=== PATIENT | female | born 1990 | race Caucasian/White ===

== ENCOUNTER 2021-03-13 09:50 | Emergency (ER) | payer OTHER ==
[2021-03-13 10:30] LABS: Absolute Neutrophil Ct (ANC) 4.81 (1.4-6.9); BASOPHIL % 0.3 % (0.0-0.4); Basophil (Absolute #) 0.02 (0-0.4); Eosinophil % 0.9 % (0.00-5.0); Eosinophil (Absolute #) 0.07 (0-0.5); Hematocrit 37.1 % (35-47); Hemoglobin 12.6 gm/dl (12.0-16.0); Lymphocyte (Absolute #) 1.88 (1.0-4.6); Mean Cell Volume 87.5 fl (78-100); Mean Corpuscular Hemoglobin 29.7 pg (26-32); Mean Platelet Volume 9.9 fl (7.5-11.0); Monocyte (Absolute #) 0.75 (0.0-1.3); Neutrophil % 63.8 % (36.0-66.0); Platelet Count 237 K/mm3 (150-450); Red Blood Count 4.24 M/mm3 (4.1-5.4); Red Cell Distribution Width 12.3 % (11.5-14.0); White Blood Count 7.5 K/mm3 (4.0-10.5)
[2021-03-13 10:38] LABS: Appearance SLIGHTLY CLOUDY (CLEAR); Bacteria RARE /HPF (NEGATIVE); Bilirubin NEGATIVE (NEGATIVE); Blood LARGE Ery/ul (0-5); Glucose NEGATIVE (NEGATIVE); Ketones TRACE (NEGATIVE); Leukocyte Esterase NEGATIVE (NEGATIVE); Nitrite NEGATIVE (NEGATIVE); Protein,Urine Dip 100 (Negative); Urobilinogen NEGATIVE mg/dL (0-1)
[2021-03-13 10:39] LABS: RBC >101 /HPF (0-2)
[2021-03-13 10:40] LABS: Epithelial Cells FEW /HPF (FEW)
[2021-03-13 11:00] LABS: ALBUMIN 4.7 g/dL (3.5-5.0); ALKALINE PHOSPHATASE 48 U/L (38-126); ANION GAP 13.3 MEQ/L (5-15); BLOOD UREA NITROGEN 9 mg/dL (7-17); CHLORIDE 101 mmol/L (98-107); Calcium 9.1 mg/dL (8.4-10.2); Carbon Dioxide 26 mmol/L (22-30); Creatinine 1 0.72 mg/dL (0.52-1.04); EST GLOMERULAR FILTRATION RATE > 60.0 ML/MIN; Glucose 88 mg/dL (74-106); Potassium 3.4 mmol/L (3.5-5.1); SGOT/AST 32 U/L (14-36); SGPT/ALT 16 U/L (0-35); SODIUM 137 mmol/L (137-145)
[2021-03-13 11:08] VITALS: BP 109/57
--- NOTE | 2021-03-13 11:10 | ERPHSYRPT ---
- History of Present Illness Source: patient Patient Subjective Stated Complaint: Pt states "I had a period, or what I thou ght was a period in mid january, On the 09 of march, I had a positive urine test and for the past couple of days I have had vaginal bleeding and it is spotting and heavy when I pee or wipe." Triage Nursing Assessment: Pt presented alert and oriented X 3, skin pwd Pt ambulates with an upright steady gait, able to speak in clear full sentences pt in no apaprent respiratory distress. Physician History: 30 yo wf w +preg test last week w vag spotting x1wk. Pt has diffuse abdominal pain described as cramping and rated 3/10 w max 7/10. Nothing makes the pain better or worse. She denies N/V/fever/dysuria/hematuria but has had some loose stool. Pt [id number] w 11month old child who is breast feeding. Timing/Duration: other (1wk) Activites at Onset: none Quality: cramping Onset Location: other (FGeneralized) Severity of Pain-Max: moderate Severity of Pain-Current: mild Prior abdominal problems: none Sexual intercourse history: non-contributory ( ) Modifying Factors: Improves With: nothing Associated Symptoms: abdominal pain, , other (vag bleeding) Allergies/Adverse Reactions: No Known Drug Allergies Allergy (Verified 03/13/21 10:11) Home Medications: Multivitamin with Folic Acid [[facility] One Daily Essential Tablet] 400 mcg PO DAILY 03/13/21 [History] Hx Tetanus, Diphtheria Vaccination/Date Given: No Hx Influenza Vaccination/Date Given: No Hx Pneumococcal Vaccination/Date Given: No Travel Risk - International Travel Have you traveled outside of the country in past 3 weeks: No - Coronavirus Screening Are you exhibiting any of the following symptoms?: No Close contact with a COVID-19 positive Pt in past 14-21 Days: No - Vaccine Status Have you recieved a Covid-19 vaccination: No - Review of Systems Constitutional: No Symptoms Eyes: No Symptoms Ears, Nose, & Throat: No Symptoms Respiratory: No Symptoms Cardiac: No Symptoms Abdominal/Gastrointestinal: No Symptoms, Diarrhea Genitourinary Symptoms: No Symptoms, , Vaginal Bleeding Musculoskeletal: No Symptoms Skin: No Symptoms Neurological: No Symptoms Psychological: No Symptoms Endocrine: No Symptoms Hematologic/Lymphatic: No Symptoms Immunological/Allergic: No Symptoms - Past Medical History Pertinent Past Medical History: Yes Neurological History: Migraines ENT History: No Pertinent History Cardiac History: No Pertinent History Respiratory History: Asthma Endocrine Medical History: No Pertinent History Musculoskeletal History: No Pertinent History GI Medical History: Gallbladder Disease History: No Pertinent History Psycho-Social History: No Pertinent History Female Reproductive Disorders: Other Other Medical History: ovarian cysts - Past Surgical History Past Surgical History: Yes Other Surgical History: noe. appi. tonsils and adnoids. dental implants. lasix - Social History Smoking Status: Never smoker Exposure to second hand smoke: Yes Drug Use: none Patient Lives Alone: No Significant Family History: no pertinent family hx - Female History Hx Last Menstrual Period: 02/08/2021 Hx Now: Yes - Nursing Vital Signs Nursing Vital Signs: Initial Vital Signs Temperature 99.0 F 03/13/21 10:00 Pulse Rate 102 H 03/13/21 10:00 Respiratory Rate 20 03/13/21 10:00 Blood Pressure 156/99 03/13/21 10:00 O2 Sat by Pulse Oximetry 100 03/13/21 10:00 Pain Scale Pain Intensity 4 - Physical Exam General Appearance: no apparent distress Eye Exam: PERRL/EOMI, eyes nml inspection Ears, Nose, Throat Exam: normal ENT inspection, TMs normal, pharynx normal, moist mucous membranes Neck Exam: normal inspection, non-tender Respiratory Exam: normal breath sounds, lungs clear, airway intact, No chest tenderness, No respiratory distress Cardiovascular Exam: tachycardia Gastrointestinal/Abdomen Exam: soft, normal bowel sounds, tenderness (Mild diffuse) Back Exam: normal inspection, normal range of motion, No CVA tenderness, No vertebral tenderness Extremity Exam: normal inspection, normal range of motion Neurologic Exam: alert, oriented x 3, cooperative, set up person II-XII nml as tested, normal mood/affect, nml cerebellar function, nml station & gait, sensation nml, No motor deficits, No sensory deficit Skin Exam: normal color, warm, dry, No rash Lymphatic Exam: No adenopathy SpO2 Interpretation: normal SpO2: 100 O2 Delivery: Room Air - Course Nursing assessment & vital signs reviewed: Yes - Radiology Ultrasound Exam Pelvis Ultrasound: discussed w/radiologist (IU cystic mass [id number], adnexa wo mass) Ordered Tests: Active Orders 24 hr Category Date Time Status OB <14 WKS 1ST GESTATION [US] Stat Exams 03/13/21 11:55 Completed CBC W DIFF Stat Lab 03/13/21 10:26 Completed CMP Stat Lab 03/13/21 10:17 Completed CULTURE,URINE Stat Lab 03/13/21 10:17 Received HCG, Quantitative (Inhouse) Stat Lab 03/13/21 09:40 Completed HCG,QUALITATIVE URINE Stat Lab 03/13/21 10:17 Completed UA W/RFX UR CULTURE Stat Lab 03/13/21 10:17 Completed Lab/Rad Data: Laboratory Result Diagrams 03/13/21 10:26 03/13/21 10:17 Laboratory Results 03/13/21 03/13/21 03/13/21 Range/Units 10: 10:17 10:17 WBC 7.5 (4.0-10.5) K/mm3 RBC 4.24 (4.1-5.4) M/mm3 Hgb 12.6 (12.0-16.0) gm/dl Hct 37.1 (35-47) % MCV 87.5 (78-100) fl MCH 29.7 (26-32) pg MCHC 34.0 (32-36) g/dl RDW 12.3 (11.5-14.0) % Plt Count 237 (150-450) K/mm3 MPV 9.9 (7.5-11.0) fl Gran % 63.8 (36.0-66.0) % Eos # (Auto) 0.07 (0-0.5) Absolute Lymphs (auto) 1.88 (1.0-4.6) Absolute Monos (auto) 0.75 (0.0-1.3) Lymphocytes % 25.0 (24.0-44.0) % Monocytes % 10.0 (0.0-12.0) % Eosinophils % 0.9 (0.00-5.0) % Basophils % 0.3 (0.0-0.4) % Absolute Granulocytes 4.81 (1.4-6.9) Basophils # 0.02 (0-0.4) Sodium (137-145) mmol/L Potassium (3.5-5.1) mmol/L Chloride (98-107) mmol/L Carbon Dioxide (22-30) mmol/L Anion Gap (5-15) MEQ/L BUN (7-17) mg/dL Creatinine (0.52-1.04) mg/dL Estimated GFR ML/MIN Glucose (74-106) mg/dL Calcium (8.4-10.2) mg/dL Total Bilirubin (0.2-1.3) mg/dL AST (14-36) U/L ALT (0-35) U/L Alkaline Phosphatase (38-126) U/L Serum Total Protein (6.3-8.2) g/dL Albumin (3.5-5.0) g/dL Beta HCG, Quant mIU/ml Urine Color RED (YELLOW) Urine Appearance SLIGHTLY CLOUDY (CLEAR) Urine pH 7.0 (5-6) Ur Specific [place] 1.010 (1.005-1.025) Urine Protein 100 (Negative) Urine Ketones TRACE (NEGATIVE) Urine Blood LARGE (0-5) Julio C/ul Urine Nitrite NEGATIVE (NEGATIVE) Urine Bilirubin NEGATIVE (NEGATIVE) Urine Urobilinogen NEGATIVE (0-1) mg/dL Ur Leukocyte Esterase NEGATIVE (NEGATIVE) Urine WBC (Auto) 11-15 (0-5) /HPF Urine RBC (Auto) >101 (0-2) /HPF U Epithel Cells (Auto) FEW (FEW) /HPF Urine Bacteria (Auto) RARE (NEGATIVE) /HPF Urine Culture Reflexed YES (NO) Urine Glucose NEGATIVE (NEGATIVE) mg/dL Urine HCG, Qual POSITIVE (Negative) 03/13/21 03/13/21 Range/Units 10:17 09:40 WBC (4.0-10.5) K/mm3 RBC (4.1-5.4) M/mm3 Hgb (12.0-16.0) gm/dl Hct (35-47) % MCV (78-100) fl MCH (26-32) pg MCHC (32-36) g/dl RDW (11.5-14.0) % Plt Count (150-450) K/mm3 MPV (7.5-11.0) fl Gran % (36.0-66.0) % Eos # (Auto) (0-0.5) Absolute Lymphs (auto) (1.0-4.6) Absolute Monos (auto) (0.0-1.3) Lymphocytes % (24.0-44.0) % Monocytes % (0.0-12.0) % Eosinophils % (0.00-5.0) % Basophils % (0.0-0.4) % Absolute Granulocytes (1.4-6.9) Basophils # (0-0.4) Sodium 137 (137-145) mmol/L Potassium 3.4 L (3.5-5.1) mmol/L Chloride 101 (98-107) mmol/L Carbon Dioxide 26 (22-30) mmol/L Anion Gap 13.3 (5-15) MEQ/L BUN 9 (7-17) mg/dL Creatinine 0.72 (0.52-1.04) mg/dL Estimated GFR > 60.0 ML/MIN Glucose 88 (74-106) mg/dL Calcium 9.1 (8.4-10.2) mg/dL Total Bilirubin 0.50 (0.2-1.3) mg/dL AST 32 (14-36) U/L ALT 16 (0-35) U/L Alkaline Phosphatase 48 (38-126) U/L Serum Total Protein 8.0 (6.3-8.2) g/dL Albumin 4.7 (3.5-5.0) g/dL Beta HCG, Quant 2085.4 mIU/ml Urine Color (YELLOW) Urine Appearance (CLEAR) Urine pH (5-6) Ur Specific [place] (1.005-1.025) Urine Protein (Negative) Urine Ketones (NEGATIVE) Urine Blood (0-5) Julio C/ul Urine Nitrite (NEGATIVE) Urine Bilirubin (NEGATIVE) Urine Urobilinogen (0-1) mg/dL Ur Leukocyte Esterase (NEGATIVE) Urine WBC (Auto) (0-5) /HPF Urine RBC (Auto) (0-2) /HPF U Epithel Cells (Auto) (FEW) /HPF Urine Bacteria (Auto) (NEGATIVE) /HPF Urine Culture Reflexed (NO) Urine Glucose (NEGATIVE) mg/dL Urine HCG, Qual (Negative) - Progress Counseled pt/family regarding: lab results, need for follow-up, rad results - Departure Departure Disposition: Home Clinical Impression: First trimester bleeding, UTI in Condition: Stable Critical Care Time: No Referrals: ROLAND GALEANO DO [Primary Care Provider] - Instructions: Bleeding With (DC), Urinary Tract Infections in Additional Instructions: Follow up with Ob is[facility] Start Macrobid Return to ER for increasing pain/bleeding/temperature greater than 100.5 Prescriptions: Nitrofurantoin Monohyd/M-Cryst [Macrobid 100 mg Capsule] 100 mg PO BID #14 capsule
--- NOTE | 2021-03-13 12:11 | XRAY ---
Indication: Active bleeding. Blood in urine. Positive for test. Two-dimensional transabdominal and transvaginal early OB ultrasound performed. Comparison: None Uterus anteverted measuring 9.0 x 3.0 x 5.0 cm. Endometrial cavity demonstrates a flattened cystic mass near the fundus, possible gestational sac. Mean sac diameter is 0.79 cm corresponding to 5 weeks 3 days. No pole/heart tones. Right ovary measures 2.9 x 3.9 x 2.1 cm and the left measures 2.3 x 2.2 x 1.6 cm with normal perfusion. No suspicious solid/cystic adnexal mass. Large amount of nonspecific free fluid. Impression: 1. Intrauterine cystic mass, possibly a gestational sac measuring 5 weeks 3 days. No pole/heart tones. Correlate with serial beta hCG and follow-up sonogram regarding viability. 2. Large pelvic free fluid of uncertain etiology.
[2021-03-13 12:15] VITALS: PULSE 98
[2021-03-13 12:19] VITALS: O2SAT 100
== END 2021-03-13 12:31 | disposition home or self-care (01) ==
LOC: ED 09:50
DX: O20.9 Hemorrhage in early pregnancy, unspecified (principal); O23.41 Unspecified infection of urinary tract in pregnancy, first trimester; Z3A.01 Less than 8 weeks gestation of pregnancy
CPT/HCPCS: 36000; 36415; 76801; 80053; 81001; 84702; 84703; 85025; 87086; 99284

== ENCOUNTER 2022-08-28 21:54 | Emergency (ER) | payer OTHER ==
[2022-08-28] MEDS ORDERED: Eye-Stream Solution ONE (23:16)
[2022-08-28] MEDS ORDERED: Fluor-I-Strip/Ful-Flo OP ONE (23:16)
[2022-08-28] MEDS ORDERED: TETRACAINE 0.5% STERI-UNIT SOL OP ONE (23:16)
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
[2022-08-28] MEDS: Erythromycin 3.5 GM OPHTH. OP ONE (23:53)
[2022-08-29 00:01] VITALS: BP 114/65; PULSE 72; O2SAT 98
== END 2022-08-29 00:02 | disposition home or self-care (01) ==
LOC: ED 21:54
DX: S05.8X2A Other injuries of left eye and orbit, initial encounter (principal); W22.8XXA Striking against or struck by other objects, initial encounter; H57.12 Ocular pain, left eye; Z28.310 Unvaccinated for COVID-19
CPT/HCPCS: 99282; A9270-GY

== ENCOUNTER 2024-11-10 16:28 | Emergency (ER) | payer OTHER ==
[2024-11-10 16:45] VITALS: TEMP 99.1
[2024-11-10 17:20] LABS: Appearance Clear (Clear); Bacteria None Seen /HPF (None Seen); Bilirubin Negative (Negative); Blood Negative (Negative); Epithelial Cells None Seen /HPF (None Seen); Glucose, Urine Negative (Negative); Hyaline Casts NONE SEEN /LPF (0-2); Ketones Negative (Negative); Leukocyte Esterase Negative (Negative); Nitrite Negative (Negative); Protein,Urine Dip Negative (Negative); RBC 0-2 /HPF (0-5); Specific Gravity <=1.005 (1.005-1.030); Urobilinogen 0.2 mg/dL (0.2); WBC 0-2 /HPF (0-5)
[2024-11-10 17:56] LABS: INFLUENZA A NEGATIVE (NEGATIVE); INFLUENZA B NEGATIVE (NEGATIVE); RESPIRATORY SYNCTIAL VIRUS NEGATIVE (NEGATIVE); SARS-CoV-2 Xpert Express NEGATIVE (NEGATIVE)
--- NOTE | 2024-11-10 18:26 | ERPHSYRPT ---
- History of Present Illness Time Seen by Provider: 11/10/24 17:00 Source: patient Exam Limitations: no limitations Patient Subjective Stated Complaint: pt here for cough ,sob for over a week now. was seen at clinic and was started on amoxicillin, and inhaler Triage Nursing Assessment: pt alert, arrived per wc, resp easy, sob with excert ion, wants bed up high. occ dry cough. chest clear, is 19 weeks , no vaginal bleeding, has felt baby move today Physician History: 34-year-old female presents to our ED for evaluation of shortness of breath. Patient states the shortness of breath started just over a week ago. Patient went to an urgent care last . Patient was treated with amoxicillin and an inhaler. Patient states the treatments did not help her. Patient is still experiencing shortness of breath. No chest pain. No nausea vomiting or diaphoresis. Symptoms are mild to moderate in intensity. Exertion worsens symptomology. Patient otherwise feels well. She voices no other complaints or concerns at this time. Portions of this note were created with voice recognition technology. There may be grammatical, spelling, punctuation or sound alike errors Timing/Duration: week(s) Severity: moderate Modifying Factors: Improves With: nothing Associated Symptoms: denies symptoms Allergies/Adverse Reactions: bee pollen Allergy (Severe, Verified 11/10/24 16:43) Swelling of Hands Home Medications: Amoxicillin 500 mg PO TID 11/10/24 [History] Hx Tetanus, Diphtheria Vaccination/Date Given: Yes Hx Influenza Vaccination/Date Given: No Hx Pneumococcal Vaccination/Date Given: No Immunizations Up to Date: Yes Travel Risk - International Travel Have you traveled outside of the country in past 3 weeks: No - Emerging Infectious Disease Are you exhibiting symptoms associated with any current EIDs: No - Review of Systems Constitutional: No Symptoms, No Fever, No Chills Eyes: No Symptoms Ears, Nose, & Throat: No Symptoms Respiratory: No Symptoms, No Cough, No Dyspnea Cardiac: No Symptoms, No Chest Pain, No Edema, No Syncope Abdominal/Gastrointestinal: No Symptoms, No Abdominal Pain, No Nausea, No Vomiting, No Diarrhea Genitourinary Symptoms: No Symptoms, No Dysuria Musculoskeletal: No Symptoms, No Back Pain, No Neck Pain Skin: No Symptoms, No Rash Neurological: No Symptoms, No Dizziness, No Focal Weakness, No Sensory Changes Psychological: No Symptoms Endocrine: No Symptoms Hematologic/Lymphatic: No Symptoms Immunological/Allergic: No Symptoms All Other Systems: Reviewed and Negative - Past Medical History Pertinent Past Medical History: Yes Neurological History: Migraines ENT History: No Pertinent History Cardiac History: No Pertinent History Respiratory History: Asthma Endocrine Medical History: No Pertinent History Musculoskeletal History: No Pertinent History GI Medical History: Gallbladder Disease History: No Pertinent History Psycho-Social History: No Pertinent History Female Reproductive Disorders: Other Other Medical History: ovarian cysts - Past Surgical History Past Surgical History: Yes Gastrointestinal: Appendectomy, Cholecystectomy Female Surgical History: Section Other Surgical History: noe. appi. tonsils and adnoids. dental implants. lasix Significant Family History: no pertinent family hx - Female History Hx Last Menstrual Period: 06/28/2024 Hx Now: Yes Gestational Age: 20 - Social History Smoking Status: Never smoker Exposure to second hand smoke: No Drug Use: none Patient Lives Alone: No - Social Determinants of Health Will the patient participate in the screening: Declined to provide - Nursing Vital Signs Nursing Vital Signs: Initial Vital Signs Pulse Rate 90 11/10/24 16:40 Respiratory Rate 18 11/10/24 16:40 Blood Pressure 126/87 11/10/24 16:40 O2 Sat by Pulse Oximetry 97 11/10/24 16:40 Pain Scale Pain Intensity 2 - Physical Exam General Appearance: no apparent distress, alert Eye Exam: PERRL/EOMI, eyes nml inspection Ears, Nose, Throat Exam: normal ENT inspection, TMs normal, pharynx normal, moist mucous membranes Neck Exam: normal inspection, non-tender, supple, full range of motion Respiratory Exam: normal breath sounds, lungs clear, airway intact, No respiratory distress Cardiovascular Exam: regular rate/rhythm, normal heart sounds, normal peripheral pulses Gastrointestinal/Abdomen Exam: soft, normal bowel sounds, No tenderness, No mass Back Exam: normal inspection, normal range of motion, No CVA tenderness, No vertebral tenderness Extremity Exam: normal inspection, normal range of motion, pelvis stable, other (Negative Homans' sign bilaterally) Neurologic Exam: alert, oriented x 3, cooperative, normal mood/affect, sensation nml, No motor deficits Skin Exam: normal color, warm, dry, No rash Lymphatic Exam: No adenopathy SpO2 Interpretation: normal SpO2: 98 O2 Delivery: Room Air - Course Nursing assessment & vital signs reviewed: Yes - Radiology Exams Chest X-ray Interpretation: Teleradiologist Report (Chest x-ray negative for acute pathology) - CT Exams Chest CT Interpretation: Tele-radiologist Report (CTA chest negative for PE) Ordered Tests: Active Orders 24 hr Category Date Time Status CHEST 1 VIEW (PORTABLE) Stat Exams 11/10/24 17:35 Taken CHEST WITH CONTRAST [CT] Stat Exams 11/10/24 20:07 Taken CBC W DIFF Stat Lab 11/10/24 18:35 Completed CMP Stat Lab 11/10/24 18:35 Completed D-DIMER QUANTITATIVE Stat Lab 11/10/24 18:35 Completed UA W/RFX UR CULTURE Stat Lab 11/10/24 17:14 Completed Respiratory Therapy Assessment DAILY RT 11/10/24 18:35 Active Medication Summary Discontinued Medications Generic Name Dose Route Start Last Admin Trade Name Freq PRN Reason Stop Dose Admin Albuterol Sulfate 2.5 mg 11/10/24 18:26 11/10/24 18:39 Albuterol Sulfate 2.5 Mg/3 Ml Neb IH 11/10/24 18:27 2.5 mg STAT ONE Administration Albuterol Sulfate Confirm 11/10/24 18:34 Albuterol Sulfate 2.5 Mg/3 Ml Neb Administered 11/10/24 18:35 Dose 2.5 mg IH .STK-MED ONE Prednisone 20 mg 11/10/24 22:05 11/10/24 22:14 Prednisone 20 Mg Tablet PO 11/10/24 22:06 20 mg ONCE STA Administration Prednisone Confirm 11/10/24 22:13 Prednisone 20 Mg Tablet Administered 11/10/24 22:14 Dose 20 mg .ROUTE .STK-MED ONE Lab/Rad Data: Laboratory Result Diagrams 11/10/24 18:35 11/10/24 18:35 Laboratory Results 11/10/24 11/10/24 11/10/24 Range/Units 18:35 18:35 18:35 WBC 12.0 H (3.98-10.04) x10^3/uL RBC 3.74 L (3.93-5.22) x10^6/uL Hgb 11.5 (11.2-15.7) g/dL Hct 32.3 L (34.1-44.9) % MCV 86.4 (79.4-94.8) fL MCH 30.7 (25.6-32.2) pg MCHC 35.6 H (32.2-35.5) g/dL RDW 12.7 (11.7-14.4) % Plt Count 284 (182-369) x10^3/uL MPV 9.3 L (9.4-12.3) fL Gran % 67.6 (34.0-71.1) % Immature Gran % (Auto) 1.0 H (0.001-0.429) % Nucleat RBC Rel Count 0.0 (0.00-0.2) % Eos # (Auto) 0.45 H (0.04-0.36) x10^3/uL Immature Gran # (Auto) 0.12 H (0.001-0.031) x10^3u/L Absolute Lymphs (auto) 2.42 (1.18-3.74) x10^3/uL Absolute Monos (auto) 0.86 (0.24-0.86) x10^3/uL Absolute Nucleated RBC 0.00 (0.00-0.012) x10^3u/L Lymphocytes % 20.1 (19.3-51.7) % Monocytes % 7.2 (4.7-12.5) % Eosinophils % 3.7 (0.7-5.8) % Basophils % 0.4 (0.1-1.2) % Absolute Granulocytes 8.11 H (1.56-6.13) x10^3/uL Basophils # 0.05 (0.01-0.08) x10^3/uL D-Dimer 0.67 H* (0.0-0.50) mg/L Sodium 137 (135-145) mmol/L Potassium 3.7 (3.5-5.1) mmol/L Chloride 109 H (98-107) mmol/L Carbon Dioxide 20 L (22-30) mmol/L Anion Gap 12.5 (5-15) MEQ/L BUN 13 (7-17) mg/dL Creatinine 0.57 (0.52-1.04) mg/dL Estimated GFR 123.0 ML/MIN Glucose 91 (74-106) mg/dL Calcium 9.2 (8.4-10.2) mg/dL Total Bilirubin 0.30 (0.2-1.3) mg/dL AST 22 (14-36) U/L ALT 16 (0-35) U/L Alkaline Phosphatase 39 (38-126) U/L Serum Total Protein 7.8 (6.3-8.2) g/dL Albumin 4.2 (3.5-5.0) g/dL Urine Color (Yellow) Urine Appearance (Clear) Urine pH (4.6-8.0) Ur Specific [place] (1.005-1.030) Urine Protein (Negative) Urine Glucose (UA) (Negative) mg/dL Urine Ketones (Negative) Urine Blood (Negative) Urine Nitrite (Negative) Urine Bilirubin (Negative) Urine Urobilinogen (0.2) mg/dL Ur Leukocyte Esterase (Negative) U Hyaline Cast (Auto) (0-2) /LPF Urine Microscopic RBC (0-5) /HPF Urine Microscopic WBC (0-5) /HPF Ur Epithelial Cells (None Seen) /HPF Urine Bacteria (None Seen) /HPF Urine Culture Reflexed (NO) Influenza Type A Ag (NEGATIVE) Influenza Type B Ag (NEGATIVE) RSV (PCR) (NEGATIVE) SARS-CoV-2 (PCR) (NEGATIVE) 11/10/24 11/10/24 Range/Units 17:14 17:14 WBC (3.98-10.04) x10^3/uL RBC (3.93-5.22) x10^6/uL Hgb (11.2-15.7) g/dL Hct (34.1-44.9) % MCV (79.4-94.8) fL MCH (25.6-32.2) pg MCHC (32.2-35.5) g/dL RDW (11.7-14.4) % Plt Count (182-369) x10^3/uL MPV (9.4-12.3) fL Gran % (34.0-71.1) % Immature Gran % (Auto) (0.001-0.429) % Nucleat RBC Rel Count (0.00-0.2) % Eos # (Auto) (0.04-0.36) x10^3/uL Immature Gran # (Auto) (0.001-0.031) x10^3u/L Absolute Lymphs (auto) (1.18-3.74) x10^3/uL Absolute Monos (auto) (0.24-0.86) x10^3/uL Absolute Nucleated RBC (0.00-0.012) x10^3u/L Lymphocytes % (19.3-51.7) % Monocytes % (4.7-12.5) % Eosinophils % (0.7-5.8) % Basophils % (0.1-1.2) % Absolute Granulocytes (1.56-6.13) x10^3/uL Basophils # (0.01-0.08) x10^3/uL D-Dimer (0.0-0.50) mg/L Sodium (135-145) mmol/L Potassium (3.5-5.1) mmol/L Chloride (98-107) mmol/L Carbon Dioxide (22-30) mmol/L Anion Gap (5-15) MEQ/L BUN (7-17) mg/dL Creatinine (0.52-1.04) mg/dL Estimated GFR ML/MIN Glucose (74-106) mg/dL Calcium (8.4-10.2) mg/dL Total Bilirubin (0.2-1.3) mg/dL AST (14-36) U/L ALT (0-35) U/L Alkaline Phosphatase (38-126) U/L Serum Total Protein (6.3-8.2) g/dL Albumin (3.5-5.0) g/dL Urine Color Yellow (Yellow) Urine Appearance Clear (Clear) Urine pH 7.0 (4.6-8.0) Ur Specific [place] <=1.005 (1.005-1.030) Urine Protein Negative (Negative) Urine Glucose (UA) Negative (Negative) mg/dL Urine Ketones Negative (Negative) Urine Blood Negative (Negative) Urine Nitrite Negative (Negative) Urine Bilirubin Negative (Negative) Urine Urobilinogen 0.2 (0.2) mg/dL Ur Leukocyte Esterase Negative (Negative) U Hyaline Cast (Auto) NONE SEEN (0-2) /LPF Urine Microscopic RBC 0-2 (0-5) /HPF Urine Microscopic WBC 0-2 (0-5) /HPF Ur Epithelial Cells None Seen (None Seen) /HPF Urine Bacteria None Seen (None Seen) /HPF Urine Culture Reflexed NO (NO) Influenza Type A Ag NEGATIVE (NEGATIVE) Influenza Type B Ag NEGATIVE (NEGATIVE) RSV (PCR) NEGATIVE (NEGATIVE) SARS-CoV-2 (PCR) NEGATIVE (NEGATIVE) - Progress Progress: improved Progress Note: Dr. Nickerson spoke to at approximately 7:35 PM. We discussed patient's shortness of breath her stage of the D-dimer findings. We discussed the negative findings on chest x-ray. He advised moving forward with a CTA c hest. After lengthy discussion with patient. She discussed the risks and benefits of the CT scan with her . They decided to move forward with a CTA as well. 11/10/24 19:50 I discussed the case with patient's METAL BUGGY OPERATOR physician who agrees to move forward with a CAT scan. 11/10/24 19:56 CTA chest negative for PE. I discussed the case with . We plan on treating patient with 20 mg of prednisone daily x 3 days. 11/10/24 21:50 34-year-old female presents for emergency department for evaluation of shortness of breath. Patient already treated with antibiotic and albuterol inhaler. No significant relief. Chest x-ray negative for acute pathology. CTA chest negative for PE. We are adding steroid to patient's regimen after consultation with METAL BUGGY OPERATOR . Patient will have 20 mg prednisone x 3 days. Initial dose here in our ED. Patient agrees to follow-up with her primary care doctor within 48 hours for reevaluation. Plan of care discussed with patient and her mother who is also at the bedside. They agree to follow-up as planned. They voiced no other complaints or concerns at this time. Patient still has her albuterol inhaler which she will continue to use. Portions of this note were created with voice recognition technology. There may be grammatical, spelling, punctuation or sound alike errors Complexity of problem addressed is moderate acute complicated. No critical care time. Complex of data reviewed and analyzed is extensive. Test ordered chest reviewed results analyzed and correlated clinically with history and physical exam. Management discussed with METAL BUGGY OPERATOR physicians. Risk of complication and or risk of morbidity/mortality patient management is moderate. A prescription for prednisone forwarded to patient's pharmacy. Vital stable. Time spent to discharge patient is approximately 15 minutes. Plan of care established for shared decision making. No social determinants of health present to impede follow-up. Portions of this note were created with voice recognition technology. There may be grammatical, spelling, punctuation or sound alike errors 11/10/24 22:23 Counseled pt/family regarding: lab results, diagnosis - Departure Departure Disposition: Home Clinical Impression: URI (upper respiratory infection), SOB (shortness of breath), Reactive airway disease Condition: Stable Critical Care Time: No Referrals: DOCTOR,NO FAMILY [Primary Care Provider] - Follow up/PCP as directed Instructions: Upper respiratory infection in adults - Discharge instructions, Shortness of breath in adults - ED discharge instructions Additional Instructions: Discharge/Care Plan PILI WOO was seen on 11/10/24 in the Emergency Room. The patient was counseled regarding Diagnosis,Lab results, Imaging studies, need for follow up and when to return to the Emergency Room. Prescriptions given: Discharge Note I have spoken with the patient and/or caregivers. I have explained the patient's condition, diagnosis and treatment plan based on the information available to me at this time. I have answered the patient's and/or caregiver's questions and addressed any concerns. The patient and/or caregivers have as good understanding of the patient's diagnosis, condition and treatment plan as can be expected at this point. The vital signs have been stable. The patient's condition is stable and appropriate for discharge from the emergency department. The patient will pursue further outpatient evaluation with the primary care physician or other designated or consulting physician as outlined in the discharge instructions. The patient and/or caregivers are agreeable to this plan of care and follow-up instructions have been explained in detail. The patient and/or caregivers have received these instruction. The patient/and or caregivers are aware that any significant change in condition or worsening of symptoms should prompt an immediate return to this or the closest emergency department or call 911. Prescriptions: Prednisone 10 mg [Deltasone 10 mg] 20 mg PO DAILY 2 Days #4 tablet
[2024-11-10] MEDS ORDERED: PROVENTIL 2.5 MG/3 ML NEB IH ONE (18:34)
[2024-11-10] MEDS: PROVENTIL 2.5 MG/3 ML NEB IH ONE (18:39)
[2024-11-10 18:41] LABS: Absolute Neutrophil Ct (ANC) 8.11 x10^3/uL (1.56-6.13); BASOPHIL % 0.4 % (0.1-1.2); Basophil (Absolute #) 0.05 x10^3/uL (0.01-0.08); Eosinophil % 3.7 % (0.7-5.8); Eosinophil (Absolute #) 0.45 x10^3/uL (0.04-0.36); Hematocrit 32.3 % (34.1-44.9); Hemoglobin 11.5 g/dL (11.2-15.7); IMMATURE GRAN # 0.12 x10^3u/L (0.001-0.031); Lymphocyte (Absolute #) 2.42 x10^3/uL (1.18-3.74); Lymphocytes % 20.1 % (19.3-51.7); Mean Cell Volume 86.4 fL (79.4-94.8); Mean Corpuscular Hemoglobin 30.7 pg (25.6-32.2); Mean Corpuscular Hgb Concent. 35.6 g/dL (32.2-35.5); Mean Platelet Volume 9.3 fL (9.4-12.3); Monocyte (Absolute #) 0.86 x10^3/uL (0.24-0.86); Monocytes % 7.2 % (4.7-12.5); Neutrophil % 67.6 % (34.0-71.1); Platelet Count 284 x10^3/uL (182-369); Red Blood Count 3.74 x10^6/uL (3.93-5.22); Red Cell Distribution Width 12.7 % (11.7-14.4)
[2024-11-10 18:56] LABS: ALBUMIN 4.2 g/dL (3.5-5.0); ANION GAP 12.5 MEQ/L (5-15); BILIRUBIN,TOTAL 0.3 mg/dL (0.2-1.3); Calcium 9.2 mg/dL (8.4-10.2); Creatinine 1 0.57 mg/dL (0.52-1.04); Potassium 3.7 mmol/L (3.5-5.1); Total Protein 7.8 g/dL (6.3-8.2)
[2024-11-10 20:21] VITALS: RESP 18
[2024-11-10 22:01] VITALS: O2SAT 98
[2024-11-10 22:02] VITALS: BP 118/71; PULSE 99
[2024-11-10] MEDS ORDERED: DELTASONE 20 MG ONE (22:13)
[2024-11-10] MEDS: DELTASONE 20 MG PO STA (22:14)
--- NOTE | 2024-11-11 08:37 | XRAY ---
Indication: Short of breath. Cough. Comparison: None Portable chest demonstrates normal heart, lungs, and bony thorax with a few incidental left lung calcified granulomas.
--- NOTE | 2024-11-11 08:41 | XRAY ---
Indication: Short of breath. Elevated d-dimer. Multiple contiguous axial images obtained through the chest using 80 cc Isovue 370 contrast and PE protocol. Comparison: None Suboptimal opacification pulmonary arteries limits evaluation for pulmonary was. No obvious pulmonary embolus. Heart not enlarged. Aorta is normal in course and caliber. [place] subcarinal and tiny left hilar calcified nodes. No pathologic mediastinal/hilar lymphadenopathy. Lungs demonstrates minimal bilateral dependent atelectasis and tiny left lower lobe calcified granulomas. No suspicious pulmonary mass/nodule, infiltrate, or effusion. Bony thorax intact. Limited upper abdomen demonstrates cholecystectomy clips. Impression: 1. Pulmonary embolus evaluation limited due to suboptimal contrast opacification. No obvious pulmonary embolus. 2. Remaining CT chest with contrast exam is normal with incidental old granulomatous disease.
== END 2024-11-10 22:32 | disposition home or self-care (01) ==
LOC: ED 16:28
DX: J06.9 Acute upper respiratory infection, unspecified (principal); R06.02 Shortness of breath; J45.909 Unspecified asthma, uncomplicated; Z79.52 Long term (current) use of systemic steroids; Z79.899 Other long term (current) drug therapy
CPT/HCPCS: 0241U; 36415; 71045; 71260; 80053; 81001; 85025; 85379; 94640; 99285; 99284; J7609; A9270-GY

== ENCOUNTER 2025-08-24 06:08 | Day surgery (SDC) | payer MEDICAID ==
[2025-08-24] MEDS ORDERED: CEFAZOLIN SODIUM ONE (06:31)
[2025-08-24] MEDS ORDERED: Lactated Ringers 1,000 ML IV ONE (06:31)
[2025-08-24 06:44] VITALS: RESP 18
[2025-08-24 06:52] LABS: HCG URINE TEST NEGATIVE (NEGATIVE)
[2025-08-24 06:53] LABS: Hematocrit 40.0 % (34.1-44.9); Hemoglobin 13.6 g/dL (11.2-15.7); Mean Corpuscular Hemoglobin 29.1 pg (25.6-32.2); Mean Corpuscular Hgb Concent. 34.0 g/dL (32.2-35.5); Platelet Count 275 x10^3/uL (182-369); Red Blood Count 4.67 x10^6/uL (3.93-5.22); White Blood Count 8.2 x10^3/uL (3.98-10.04)
[2025-08-24] MEDS ORDERED: EXPAREL 133 MG/10 ML VIAL IJ ONE (07:20)
[2025-08-24] MEDS ORDERED: Marcaine Mpf 0.5% Vial 30 Ml ONE (07:20)
[2025-08-24] MEDS ORDERED: Xylocaine-Mpf 2% 5 Ml Vial ONE (07:22)
[2025-08-24] MEDS ORDERED: propofoL IV ONE ×4 (07:22→09:04)
[2025-08-24] MEDS ORDERED: TORAdol 30 mg Injection ONE (07:22)
[2025-08-24] MEDS ORDERED: SUBLIMAZE 100 MCG/2 ML ONE (07:22)
[2025-08-24] MEDS ORDERED: BRIDION 200MG/2ML IV ONE (07:22)
[2025-08-24] MEDS ORDERED: Zofran 4 MG/2 ML VIAL ONE (07:22)
[2025-08-24] MEDS ORDERED: Versed 2 MG/2 ML Injection ONE (07:22)
[2025-08-24] MEDS ORDERED: ROCURONIUM BROMIDE IV ONE (07:22)
[2025-08-24] MEDS: Lactated Ringers 1,000 ML IV SCH (07:25)
[2025-08-24] MEDS: Transderm Scop 1.5MG Patch TOP ONE (07:26)
--- NOTE | 2025-08-24 09:36 | XRAY ---
Indication: Right ankle surgery. Hardware removal. Possible syndesmosis reduction. Intraoperative fluoroscopy provided for 6 minute 23 seconds. 6 digital spot images submitted for interpretation ultimately demonstrates new transverse tunnel radiolucency through distal tibia/fibula with medial/lateral orthopedic buttons. Correlate with intraoperative findings/report.
[2025-08-24 10:16] VITALS: PULSE 66
[2025-08-24 10:24] VITALS: BP 117/68; O2SAT 99
[2025-08-24 10:36] VITALS: TEMP 96.8
--- NOTE | 2025-08-24 15:13 | XRAY ---
6 minutes 23 seconds of fluoroscopy used in surgery for a right ankle for hardware removal and possible syndesmosis reduction.
--- NOTE | 2025-08-25 09:54 | OP ---
SURGERY DATE/TIME: 08/24/2025 [id number] PREOPERATIVE DIAGNOSES: 1) Right painful retained ankle hardware. 2) Broken orthopedic hardware, right ankle. 3) Syndesmotic disruption, right ankle sequelae. 4) Pain, right ankle. POSTOPERATIVE DIAGNOSES: 1) Right painful retained ankle hardware. 2) Broken orthopedic hardware, right ankle. 3) Syndesmotic disruption, right ankle sequelae. 4) Pain, right ankle. PROCEDURES: 1) Removal of hardware, right ankle. 2) Open reduction and internal fixation of syndesmotic disruption, right ankle. SURGEON: Rivera Ramirez MD WHEAT FARMER: None. ANESTHESIA: General plus a preoperative popliteal and saphenous block. HEMOSTASIS: A pressure dressing. ESTIMATED BLOOD LOSS: Approximately 5 mL. MATERIALS: Haley titanium ZipTight with washer, 4-0 Monocryl, 3-0 nylon. INJECTABLES: See Anesthesia report for details. INDICATIONS FOR PROCEDURE: The patient is a very pleasant, 35-year-old female, known to our service for an ankle fracture that occurred on early June. She did go on for an open reduction and internal fixation on 07/01 and was started on weightbearing approximately 3 weeks after the fracture. She is now approximately 8 weeks out of the boot. However, she did return for a followup indicating that she have an increase in pain and was walking in her yard the other day in some tennis shoes when she was on uneven ground and she felt a pop on the outside of her ankle, resulting in pain and some degree of feeling instability to the ankle. She presented and it demonstrated that the syndesmosis screw had broken, which is not a completely unexpected complication as a result of a fracture with reduction of the syndesmosis. It did seem as though her syndesmosis was still out, so we decided to proceed with removal of hardware with stress testing intraoperatively and the intraoperative decision to proceed with replacement with a syndesmotic reduction. From that standpoint, patient has been made aware of all risks, complications and benefits of surgical intervention at this time including but not limited to, infection, hematoma, seroma, possibility of delayed wound healing and possible failure of surgical intervention. No guarantees were provided as to the outcome of surgery at this time. Plenty of time was allowed for the patient to ask questions, which were answered to her apparent satisfaction. It is at this time we decided to proceed. DESCRIPTION OF PROCEDURE AND FINDINGS: Patient was brought into the PACU prior to the procedure and provided a popliteal and saphenous bloc. See Anesthesia report for details. At this time, patient was brought into the operating room, placed on the operating room table in the supine position. General anesthesia was administered until the patient was adequately sedated. The right lower extremity was prepped and draped in the typical sterile fashion and lowered onto the surgical field. At this time, attention was directed to the lateral aspect of the leg where under fluoroscopic guidance, the C-arm was utilized to visualize the head of the screw on both lateral and a mortise view. Once the screw was identified, a small stab incision was made, which was deepened utilizing a pair of blunt hemostats to the level of the screw of the head which was then subsequently removed. At this time, we decided to proceed with trying to drill over the remaining screw that was left within the tibia, which deemed a little bit more difficult than originally anticipated. From that standpoint, the medial side of the leg was inspected under lateral and AP views. The screw head was identified and a 3.5 mm trephine was then utilized to bore a hole around the syndesmotic screw medially. Once this was performed, the screw was able to be removed utilizing pressure from the lateral side and pushing it out the medial side. At this time, copious amounts of sterile saline were utilized to flush the surgical site and then, a titanium ZipTight with washer was then introduced. The washer was placed on the medial aspect and was tightened. After approving with stress testing that the syndesmosis was still out, after the ZipTight was placed, the stress testing was once again performed, demonstrating with external rotation and hook test that there was no obvious widening of the syndesmosis at this time. Copious amounts of sterile saline were once again utilized to flush the surgical site. A 3-0 nylon was utilized to coapt the skin edges in a horizontal mattress-type fashion. A dressing consisting of Betadine, Adaptic, 4 x 4, Kerlix, ABD and Roman was applied to the patient's right lower extremity. Patient was returned to the postoperative anesthesia care unit with vital signs stable and vascular status intact. Patient handled the anesthesia, as well as the procedure, without significant complication. Postoperative orders as indicated in the patient's discharge chart.
== END 2025-08-24 11:03 | disposition home or self-care (01) ==
LOC: SDC 06:08
PROVIDERS: ATTEND Podiatrist Foot & Ankle Surgery
DX: T84.84XA Pain due to internal orthopedic prosthetic devices, implants and grafts, initial encounter (principal); M25.571 Pain in right ankle and joints of right foot; S93.431A Sprain of tibiofibular ligament of right ankle, initial encounter